=== PATIENT | male | born 1960 | race Caucasian/White ===

== ENCOUNTER 2019-11-22 11:29 | Inpatient (IN) | payer OTHER ==
[2019-11-22] VITALS (11 sets, daily range): BP systolic 121–142
[~2019-11-22] VITALS: Ht 185.4 cm; Wt 110.2 kg
--- NOTE | 2019-11-22 11:43 | NUR ---
PATIENT PRESENTS TO THE ER AFTER VISIT TO PMD AND WAS ADVISED TO GO TO ER FOR FIVE DAY HX OF MID CHEST PAIN WITH DYSPNEA AND FATIGUE; NO TRAUMA, NO OTHER REMARKABLE S/S; PATIENT TO ER #6 AT 1130 AND STAT EKG, INTERNAL SECURITY MANAGER AND SAO2
[2019-11-22] MEDS ORDERED: ASPIRIN 81 MG TAB.CHEW PO ONE (11:45)
--- NOTE | 2019-11-22 11:50 | NUR ---
ER at bedside examining patient.
--- NOTE | 2019-11-22 12:01 | NUR ---
patient went to the primary doctor for appointment cc of chest pain.sent to the ER for abnormal EKG. patient alert, awake, oriented. stated chest pain started since wednesday and refused to go the hospital. able to make appt with his PCP today. vital sign stable, afebrile. EKG done and gave Afshan Zuleta.
[2019-11-22 12:26] LABS: BASOPHILS # (AUTO) 0.1 K/uL (0.0-0.2); BASOPHILS % (AUTO) 0.8 % (0.0-2.0); EOSINOPHILS # (AUTO) 0.1 K/uL (0.0-0.4); EOSINOPHILS % (AUTO) 1.5 % (0.0-4.0); HEMATOCRIT 40.7 % (36-54); HEMOGLOBIN 13.8 g/dL (14.0-18.0); LYMPHOCYTES # (AUTO) 2.1 K/uL (1.0-5.5); LYMPHOCYTES % (AUTO) 26.3 % (20.5-51.5); MEAN CORPUSCULAR HEMOGLOBIN 30 pg (27-31); MEAN CORPUSCULAR HGB CONC 34 % (32-36); MEAN CORPUSCULAR VOLUME 88 fL (79.0-98.0); MONOCYTES # (AUTO) 0.6 K/uL (0.0-1.0); MONOCYTES % (AUTO) 7.8 % (1.7-9.3); NEUTROPHILS # (AUTO) 5.1 K/uL (1.8-7.7); NEUTROPHILS % (AUTO) 63.6 % (40.0-70.0); PLATELET COUNT (AUTO) 255 K/uL (130-430); RED BLOOD CELL COUNT(AUTO) 4.64 MIL/uL (4.2-6.2); WHITE BLOOD COUNT (AUTO) 8.1 K/uL (4.8-10.8)
--- NOTE | 2019-11-22 12:35 | NUR ---
IV SALINE LOCK PLACED #20 RIGHT HAND WITHOUT INCIDENT
[2019-11-22 12:46] LABS: CALCIUM 8.8 mg/dL (8.4-11.0); CREATININE 0.91 mg/dL (0.55-1.30)
[2019-11-22 12:54] LABS: ALBUMIN 3.6 g/dL (3.4-4.8); TOTAL BILIRUBIN 0.6 mg/dL (0.0-1.0)
[2019-11-22] MEDS ORDERED: ENOXAPARIN SODIUM 100 MG/ML SYRINGE SUBCUT ONE (13:30)
[2019-11-22] MEDS ORDERED: NITROGLYCERIN 0.4 MG TAB.SUBL SL PRN (13:30)
[2019-11-22] MEDS ORDERED: MORPHINE 4 MG/ML INJ. SYRINGE IVP PRN (13:30)
[2019-11-22] MEDS ORDERED: LORazepam 2 MG/ML VIAL IVP PRN (13:30)
[2019-11-22] MEDS ORDERED: LACT1CAP72 PO (13:53)
[2019-11-22] MEDS ORDERED: ROSU10TA2 PO (13:53)
--- NOTE | 2019-11-22 14:00 | NUR ---
Patient will be admitted to care of Dr. Vidal Dinero. Admitted to ICU department unit. Will go to room 2. Belongings list completed. Complete and up to date summary report printed. SBAR report to be given at bedside with opportunity for questions.
--- NOTE | 2019-11-22 14:25 | NUR ---
AT 1409 P.M, ADMITTED PATIENT FROM [facility], RECEIVED NURSING REPORT FROM [facility] STAFF, THIS IS A 59 YEARS OLD MALE, ALERT, ORIENTED X4, KOREAN VERBALIZED RESPONSE, ABLE TO MAKE NEEDS KNOWN, FULL CODE, NO KNOWN ALLERGY,DIAGNOSIS :AMI, CHIEF COMPLAIN: FEEL CHEST PAIN, , NAUSEA, GENERALIZED WEAKNESS, COLD SWEATING SINCE 6 DAYS AGO, PAST HISTORY : HIGH CHOLESTEROL, BORDERLINE HYPERTENSION, GIVE ENVIRONMENT ORIENTATION ,RAILS UP, CALL LIGHT IN REACH, KEEP CLEAN AND COMFORTABLE ALL TIMES
[2019-11-22] MEDS ORDERED: ATORVASTATIN 20 MG TABLET PO ONE (15:00)
[2019-11-22 15:17] LABS: BILIRUBIN,URINE NEGATIVE (NEGATIVE); BLOOD, URINE NEGATIVE (NEGATIVE); CLARITY/URINE CLEAR (CLEAR); COLOR,URINE YELLOW (YELLOW); GLUCOSE,URINE NEGATIVE (NEGATIVE); KETONES,URINE NEGATIVE (NEGATIVE); LEUKOCYTE ESTERASE ,URINE NEGATIVE (NEGATIVE); NITRITE, URINE NEGATIVE (NEGATIVE); PH,URINE 5.5 (5.0-8.0); PROTEIN URINE NEGATIVE (NEGATIVE); UROBILINOGEN,URINE 0.2 (0.2-1.0)
--- NOTE | 2019-11-22 16:03 | NUR ---
New consult paged to Dr. Priest. Dr. Priest returned call and states he will come see the patient.
--- NOTE | 2019-11-22 16:55 | NUR ---
SEE PATIENT FOR APPLICATIONS TRAINER CONSULT
[2019-11-22] MEDS ORDERED: HEPARIN SODIUM,PORCINE 5000 UNITS/ML VIAL SUBCUT ONE (17:15)
[2019-11-22] MEDS ORDERED: HEPARIN SODIUM,PORCINE 3000 UNITS/0.6 ML BOLUS IVP PRN (17:45)
[2019-11-22] MEDS ORDERED: ASPIRIN 81 MG TABLET(ECOTRIN) PO ONE (17:45)
[2019-11-22] MEDS ORDERED: METOPROLOL SUCCINATE 25 MG TAB.SR.24H (TOPROL XL) PO ONE (18:00)
[2019-11-22] MEDS ORDERED: LISINOPRIL 5 MG TABLET PO ONE (18:00)
--- NOTE | 2019-11-22 18:25 | NUR ---
ORDERED START HEPARIN DRIP AT 1000 UNITS/ HOUR AND FOLLOW UP PTT AT 11/23/19 0000 A.M, AND ON SCHEDULE FOR CARDIAC CATHETER 11/23/19 1500 P.M, IN [facility], PATIENT IS AWARE AND SIGN CONSENT IN THE CHART
[2019-11-22] MEDS: HEPARIN 25,000 UNITS/D5W 250ML 250 ML IV PRN (18:51)
--- NOTE | 2019-11-22 19:19 | NUR ---
GIVE COMPLETE NURSING REPORT TO OUTREACH COUNSELOR BOB Silver
[2019-11-22] MEDS ORDERED: TEMAZEPAM 15 MG CAPSULE PO PRN (21:30)
[2019-11-22] MEDS: ACETAMINOPHEN 500 MG TABLET PO PRN (22:29)
[2019-11-23] VITALS (24 sets, daily range): BP systolic 92–149
[2019-11-23] MEDS: HEPARIN SODIUM,PORCINE 2000 UNITS/0.4 ML BOLUS IVP PRN ×4 (01:44→23:28)
--- NOTE | 2019-11-23 01:49 | NUR ---
HEPARIN DRIP PTT 36.5, I witnessed Emile COON increase heparin drip from 1000 units to 1200 units per drip scale.
[2019-11-23 05:45] LABS: BASOPHILS # (AUTO) 0.1 K/uL (0.0-0.2); BASOPHILS % (AUTO) 1.1 % (0.0-2.0); EOSINOPHILS # (AUTO) 0.3 K/uL (0.0-0.4); EOSINOPHILS % (AUTO) 2.9 % (0.0-4.0); HEMOGLOBIN 13.2 g/dL (14.0-18.0); LYMPHOCYTES # (AUTO) 3.1 K/uL (1.0-5.5); LYMPHOCYTES % (AUTO) 32.8 % (20.5-51.5); MEAN CORPUSCULAR HEMOGLOBIN 30 pg (27-31); MEAN CORPUSCULAR HGB CONC 34 % (32-36); MEAN CORPUSCULAR VOLUME 88 fL (79.0-98.0); MONOCYTES # (AUTO) 0.9 K/uL (0.0-1.0); MONOCYTES % (AUTO) 9.3 % (1.7-9.3); NEUTROPHILS # (AUTO) 5.1 K/uL (1.8-7.7); NEUTROPHILS % (AUTO) 53.9 % (40.0-70.0); PLATELET COUNT (AUTO) 254 K/uL (130-430); RED BLOOD CELL COUNT(AUTO) 4.44 MIL/uL (4.2-6.2); WHITE BLOOD COUNT (AUTO) 9.4 K/uL (4.8-10.8)
--- NOTE | 2019-11-23 07:30 | NUR ---
AM ASSESSMENT Pt received from night RN using SBAR. Pt resting in bed with eyes open, bed in lowest position with call light within reach. Pt denies any chest pain now or during the night.
[2019-11-23 08:21] LABS: CALCIUM 8.8 mg/dL (8.4-11.0); CREATININE 1.03 mg/dL (0.55-1.30)
[2019-11-23] MEDS: ATORVASTATIN 20 MG TABLET PO SCH (08:40)
[2019-11-23] MEDS: LISINOPRIL 5 MG TABLET PO SCH (08:40)
[2019-11-23] MEDS: METOPROLOL SUCCINATE 25 MG TAB.SR.24H (TOPROL XL) PO SCH (08:41)
--- NOTE | 2019-11-23 08:44 | NUR ---
MD Dr. Priest at bedside with pt.
--- NOTE | 2019-11-23 08:48 | NUR ---
DC PLANNING Received call from ICU, pt higher LOC, scheduled to @ 3pm @ [facility] cardiac laborer wood preserving plant. I called & spoke w Amy @ [employer], ph [phone], states pt has not been entered in system yet no one assigned. Once receive fax w pt info can pt can be entered in system & CM assigned. I notified our admitting. I faxed pt info to Kelly, fax [phone], per Amy request. Addendum: 11/23/19 at 0959 by Cesia Lopez RN Per our insurance person, received pending auth for [facility], until pt is entered in system & CM assigned. Pending auth #[id number]. Called & informed Wanda, hospital insurance clerk @ [facility], ph [phone], states cannot take pending auth# pt needs to be in system before can accept pt. Addendum: 11/23/19 at 1127 by Cesia Lopez RN Called & left msg for Amy @ [facility], that pt should be in the system now, [facility]. Addendum: 11/23/19 at 1327 by Cesia Lopez RN Phillip LANG Wafer Substrate Tester, called [facility] to f/u if can get assigned CM if not then get auth. Do not have an assigned CM & it cannot get auth without being reviewed by assigned CM. Was escalated to urgent this am but no CM yet. Pending Auth for transfer is in the system already. I called & left msg again w Amy @ [facility], & left a msg for Inna @ [facility], ph [phone]. Received call back from Inna stating that she is not the right person for auth but she informed Dotty LANG nurse who would be able to assist. States Alayna is in rounds @ this time but will call me after rounds, has my direct #. I called & spoke w [facility]ia in [facility] & informed her that pending auth is in system now, states she cannot take a pending auth that she already looked @ [facility] system & found the pending auth but will only take pt when final auth given. Addendum: 11/23/19 at 1402 by Cesia Lopez RN Received call from Wanda, hospital insurance clerk @ [facility], stating same thing as Sintia that cannot take pending auth. I called & spoke w Dr Priest & updated, asked if can try to transfer to [facility], states no to cont to try [facility]. Received call from Mariela LANG nurse @ [facility], ph [phone], states that she will be the UR nurse following pt @ [facility]. States does not get Approved auth until pt is @ [facility], that pending auth is what is used for the transfer. Informed that [facility] not taking the pending auth, states she will discuss with her sterile supervisor & call me back. Updated Pt's nurse.
--- NOTE | 2019-11-23 09:20 | NUR ---
MD Dr. Tate at bedside with pt.
[2019-11-23] MEDS ORDERED: ROSUVASTATIN CALCIUM 5 MG/TAB (CRESTOR) PO SCH (09:45)
--- NOTE | 2019-11-23 09:45 | NUR ---
[place] [address] units/hr
--- NOTE | 2019-11-23 09:46 | NUR ---
Nutrition Update Adiel Scale 18 noted. Pt admitted for acute myocardial infarction Diet: clear liquid BMI: 32.1 kg/m2 RD to follow per nutrition care standards.
[2019-11-23] MEDS: HEPARIN 25,000 UNITS/D5W 250ML 250 ML IV PRN ×2 (09:48→15:04)
--- NOTE | 2019-11-23 14:33 | NUR ---
Received call from Kelly that Tika is CM assigned to pt here @ [place], ph [phone] fax [phone], to fax over pt review to her to review. Faxed pt info to Tika including transfer order, my direct # to call me CHRISTEL dutton. Received call back from Dotty that she discussed with her Front Office Administrator, states to fax pt info & will give to her Fisher [employer] Hooking to review. Informed me that Tika is the CM assigned to pt @ [place]. Informed received a call informing me that Tika is CM that faxed info to Tika, states they work in same dept that she will get pt info from her. Addendum: 11/23/19 at 1455 by Cesia Lopez RN Called & left msg w Tika assigned CM @ [facility], ph [phone], that need auth for transfer, to call me back w transfer auth & contracted ambulance. Informed that faxed pt info & has gone through, have fax receipt. Addendum: 11/23/19 at 1546 by Cesia Lopez RN Received call back from Tika Mendoza, states that does not have pt information yet, that the faxes go to centralized fax then they sort them & send them to correct CM. States after receives pt info will need to review with her [employer]. States do not get approved auth until pt is @ [facility]. Do not need auth for Ambulance, contracted ambulance: [facility] ph [phone], [facility] [phone], [facility] [phone], [facility] [phone], [facility] [phone]. Called & informed Wanda, insurance licensing supervisor again, states will call & speak floyd Storm. Received call back from Wanda states spoke floyd Storm & accepting pt. States need to speak w Cardiac incinerator plant laborer if pt able to come today or too late & need to be scheduled tomorrow. No answer in recyclable materials collector, called & spoke floyd Judge in admitting @ [employer], ph [phone], states spoke w Cardiac incinerator plant laborer will take pt today but needs to go to floor, cannot go straight to recyclable materials collector. Nu spoke w Gas Appliance Servicer & no beds, states will call me back Gas Appliance Servicer discussing w recyclable materials collector for plan. Addendum: 11/23/19 at 1554 by Cesia Lopez RN Re[facility] call from Dotty @ [facility] states spoke w Wanda @ [facility], states no ambulance auth required, can use any participating ambulance.
[2019-11-23] MEDS: ACETAMINOPHEN 500 MG TABLET PO PRN (14:59)
--- NOTE | 2019-11-23 15:45 | NUR ---
Discharge Planning: DCP arranged transportation with [facility] ([phone]) Will Call Trip #[id number] patient packet taken to nurse station. Patient to transfer ti [facility]
--- NOTE | 2019-11-23 15:55 | NUR ---
Process Stripper Spoke to Teresa COON [facility] Process Stripper, stated there is no bed available at this time. Instructed for [phone] [phone] [place] 4am to get a bed confirmed. Ambulance is on stand-by. Dr. Priest is made aware.
--- NOTE | 2019-11-23 16:00 | NUR ---
Informed Pt is informed of the current status regarding transfer to [facility]. All questions answered at this time. Pt understanding that we are waiting for a bed.
--- NOTE | 2019-11-23 16:07 | NUR ---
Received call from Nu in admitting, pt being rescheduled for tomorrow. Called & spoke w Chely @ [facility] lab, ph [phone], states pt scheduled for tomorrow @ 9am. Pt needs to be there 7 or 8am, need to call Benzene Washer for room assignment early tomorrow am. Called & spoke w Lacey Benzene Washer @ [facility], ph [phone], states to have nurse call around 5am tomorrow morning to get room assignment. Pt nurse Rivera is aware. Addendum: 11/23/19 at 1625 by Cesia Lopez RN Updated pt & family @ bedside, agreeable w transfer tomorrow.
--- NOTE | 2019-11-23 16:35 | NUR ---
Witnessed heparin drip titration to 1700 units/hr.
--- NOTE | 2019-11-23 17:29 | NUR ---
Family Pt resting in bed with family at bedside. No complaints of distress at this time.
--- NOTE | 2019-11-23 19:10 | NUR ---
PM ASSESSMENT Pt in bed with eyes open resting comfortably. No signs of acute distress or discomfort noted. Pt on 2L O2 via NC, tolerating well with O2 sats @ 98% and even and unlabored breathing. Pt has a LH 20g infusing Heparin drip @ 1700 u/hr. IV site c/d/i. Family at bedside. Bed is locked and in lowest position, call light within reach, will cont to monitor pt.
--- NOTE | 2019-11-23 19:21 | NUR ---
Closing Notes Pt resting in bed, no complaints of pain. Endorsed to night RN.
--- NOTE | 2019-11-23 23:30 | NUR ---
Tracy Ashley RN titrate Heparin Drip from 1700u/hr to 1900u/hr.
[2019-11-24] VITALS (16 sets, daily range): BP systolic 91–141
--- NOTE | 2019-11-24 00:53 | NUR ---
Pt in bed with eyes closed resting comfortably. No signs of acute distress or discomfort noted. Bed is locked and in lowest position, call light within reach, will cont to monitor pt.
--- NOTE | 2019-11-24 04:10 | NUR ---
Transfer Update Per manager of housekeeping, spoke to manager of housekeeping at [facility] at this time. Per [facility] manager of housekeeping, there is no bed availability at this time. Will followup in the morning. Will cont to monitor pt. Addendum: 11/24/19 at 0642 by Dion Godoy RN [facility] manager of housekeeping name, ToniaAfshan
[2019-11-24] MEDS: HEPARIN 25,000 UNITS/D5W 250ML 250 ML IV PRN (04:28)
--- NOTE | 2019-11-24 05:30 | NUR ---
Pt updated on POC at this time. All questions answered. Pt in bed with eyes open resting comfortably. No signs of acute distress or discomfort noted. Will cont to monitor pt.
--- NOTE | 2019-11-24 06:52 | NUR ---
WITNESS Witnessed SHAGGY Ashley titrate Heparin drip titration to 1900 units/hr to 2000 units/hr.
--- NOTE | 2019-11-24 07:25 | NUR ---
ENDORSEMENT Report given to dayshift RN using SBAR format and pt care was endorsed. No signs of acute distress or discomfort noted.
--- NOTE | 2019-11-24 07:30 | NUR ---
AM ASSESSMENT Pt received from night RN using SBAR.
--- NOTE | 2019-11-24 08:15 | NUR ---
DC Planning: per ,POLITICAL ANALYST, reported the patient has not been transfer to [facility] this due to no bed available for the pt. CM confirmed with Allison/[facility] admitting dept, said there are 12 pts holding in ED. And per Samia/sleep lab technician , said there are 4 pts on wait list for sleep lab technician as well. Samia is in contact with dr. Priest and aware that pt's troponin elevated x4. The case needs priority admission. Samia is hoping she can take the pt in today. I s/w to ask dr. Priest whether he wants to wait till [facility] has bed open or wants to send pt to another . -- CM to f/u.
--- NOTE | 2019-11-24 08:15 | NUR ---
Called [facility] and spoke with warehouse inventory clerk Alivia. She said their are no tele beds or ICU beds available and that there will not be any available for pt to transfer for a 9 am procedure this morning. It was discussed that we would call Dr. Priest and inform him that the patient will not be able to transfer this morning. Bedside RN aware and will place a call to Dr. Priest.
--- NOTE | 2019-11-24 08:40 | NUR ---
MD Dr. Priest at bedside with pt.
[2019-11-24] MEDS: LISINOPRIL 5 MG TABLET PO SCH (09:30)
[2019-11-24] MEDS: METOPROLOL SUCCINATE 25 MG TAB.SR.24H (TOPROL XL) PO SCH (09:30)
[2019-11-24] MEDS: ATORVASTATIN 20 MG TABLET PO SCH (09:44)
--- NOTE | 2019-11-24 12:16 | NUR ---
Manager Hydraulic: Met with pt. bedside ICU2 to conduct a DCPA. GAS WELDING MACHINE OPERATOR introduced self to to pt. who was resting. His mom, Adrienne Chery was present. Pt. stated he was fine having his mom present during this interview. Pt. was aware that he was awaiting a transfer to [facility]. for a procedure. He was agreeable to answering questions even though he was resting. Pt. was alert, awake and oriented. Pt. stated he lives at home with his finance and when he is discharged, he will return to his home. GAS WELDING MACHINE OPERATOR received phone call from Heleen in admitting at [facility], who stated they were ready and asked GAS WELDING MACHINE OPERATOR to have pt. sent over, but then she retracted and stated she is still waiting for insurance authorizations. GAS WELDING MACHINE OPERATOR thanked her for info.
--- NOTE | 2019-11-24 13:35 | NUR ---
Heparin I witnessed Maco COON titrate Heparin to 2100 units/hr from 2000 units/hr.
--- NOTE | 2019-11-24 14:50 | NUR ---
Resting Pt resting in bed. No signs of acute distress. Pt's family is at bedside.
--- NOTE | 2019-11-24 15:30 | NUR ---
Transfer Gown Pt dressed into orange transfer gown.
--- NOTE | 2019-11-24 15:39 | NUR ---
Report Report given to Lilly COON at [facility] Advertising Assistant.
--- NOTE | 2019-11-24 15:40 | NUR ---
Off Unit Pt off unit heading to [facility] via ambulance transport.
== END 2019-11-24 15:35 | disposition short-term general hospital (02) | DRG 282 ==
LOC: SED 11:29 → SIC 13:18
PROVIDERS: ADMIT Family Medicine; ATTEND Family Medicine
DX: I21.9 Acute myocardial infarction, unspecified (principal); E78.5 Hyperlipidemia, unspecified; E78.00 Pure hypercholesterolemia, unspecified; I10 Essential (primary) hypertension; Z79.899 Other long term (current) drug therapy
CPT/HCPCS: 36415; 71045; 80048; 80053; 80061; 81003; 82550-TC; 83880; 84484; 85025; 85730-TC; 87081; 93005; 96372; 99291; J1644; J1650

== ENCOUNTER 2020-04-09 11:05 | Inpatient (IN) | payer OTHER, SELFPAY ==
[~2020-04-09] VITALS: Ht 185.4 cm; Wt 107.5 kg
[~2020-04-09 11:05] MED LIST: LACT1CAP72 PO; ROSU10TA2 PO
[2020-04-09 11:10] VITALS: BP_SYST 141
--- NOTE | 2020-04-09 11:10 | NUR ---
Placed in room 3. Placed on cardiac technologist, blood pressure machine and pulse oximeter. To gown for exam. Side rails up. Report given to SHAGGY Hurtado.
[2020-04-09] MEDS ORDERED: FAMOTIDINE PF 20 MG/2 ML VIAL IVP ONE (11:30)
[2020-04-09] MEDS ORDERED: MAG-AL HYDROX/SIMETH 30 ML UDC PO ONE (11:30)
[2020-04-09] MEDS ORDERED: LIDOCAINE VISCOUS 2%, 15 ML UDC MM ONE (11:30)
[2020-04-09 11:57] LABS: BASOPHILS % (AUTO) 0.4 % (0.0-2.0); EOSINOPHILS # (AUTO) 0.1 K/uL (0.0-0.4); EOSINOPHILS % (AUTO) 1.7 % (0.0-4.0); HEMATOCRIT 46.5 % (36-54); HEMOGLOBIN 15.6 g/dL (14.0-18.0); LYMPHOCYTES # (AUTO) 1.6 K/uL (1.0-5.5); LYMPHOCYTES % (AUTO) 20.9 % (20.5-51.5); MEAN CORPUSCULAR HEMOGLOBIN 27 pg (27-31); MEAN CORPUSCULAR HGB CONC 34 % (32-36); MEAN CORPUSCULAR VOLUME 82 fL (79.0-98.0); MONOCYTES # (AUTO) 0.5 K/uL (0.0-1.0); MONOCYTES % (AUTO) 6.2 % (1.7-9.3); NEUTROPHILS # (AUTO) 5.4 K/uL (1.8-7.7); NEUTROPHILS % (AUTO) 70.8 % (40.0-70.0); PLATELET COUNT (AUTO) 198 K/uL (130-430); RED CELL DISTRIBUTION WIDTH 15.7 % (9.0-15.0); WHITE BLOOD COUNT (AUTO) 7.7 K/uL (4.8-10.8)
[2020-04-09 12:09] LABS: CALCIUM 8.9 mg/dL (8.4-11.0); CREATININE 1.03 mg/dL (0.55-1.30); POTASSIUM 4.1 mmol/L (3.5-5.1)
[2020-04-09 12:13] LABS: PROTHROMBIN TIME 9.9 SECS (9.5-12.5)
[2020-04-09 12:14] LABS: TOTAL BILIRUBIN 1.4 mg/dL (0.0-1.0)
[2020-04-09] MEDS ORDERED: METO50CA PO (14:04)
[2020-04-09] MEDS ORDERED: LIP80 PO (14:04)
[2020-04-09] MEDS ORDERED: ASPI-524 PO (14:05)
--- NOTE | 2020-04-09 14:07 | NUR ---
REASSESSMENT; PATIENT STATES MARGINAL IMPROVEMENT IN SYMPTOMS; DISPOSITION PENDING
[2020-04-09] MEDS ORDERED: CIPROFLOXACIN LACT 400 MG/D5W 200 ML IV ONE (14:30)
--- NOTE | 2020-04-09 15:25 | NUR ---
REASSESSMENT; PATIENT REMAINS SEDATE AND UNCHANGED; DISPOSITION PENDING
[2020-04-09] MEDS ORDERED: NACL 0.9% 1,000 ML IV ONE (16:45)
--- NOTE | 2020-04-09 16:57 | NUR ---
PATIENT STATES MARKED IMPROVEMENT IN SYMPTOMS; ADMISSION TO [facility] PENDING
--- NOTE | 2020-04-09 17:30 | NUR ---
Dr Afshan Duffy called back and notified of consult
--- NOTE | 2020-04-09 17:36 | NUR ---
Dr. Daley called back for cardiology consult.
--- NOTE | 2020-04-09 18:04 | NUR ---
Dr. Tate in to see patient.
--- NOTE | 2020-04-09 19:00 | NUR ---
PATIENT TRANSFERED TO [facility], PATENT IV, BCLS, IMPROVED; REPORT TO NURSE ATTENDING
[2020-04-09 19:50] VITALS: BP_SYST 156
--- NOTE | 2020-04-09 20:00 | NUR ---
ADMISSION NOTE Received patient from ER via nadege, received report from SHAGGY Munoz. Patient admitted with diagnosis of choleysistitis, cholelithiasis. Patient oriented to hospital routine, call light, toileting and safety-patient verbalized understanding.
--- NOTE | 2020-04-09 20:10 | NUR ---
04/09/202009 Received pt as an admit from home, by the charge nurse. Pt is awoke alert OX4, lungs clear, abdomen soft non distended, skin intact. Pt's PCP saw the pt in E.R, before coming to the unit, and the surgeon DR Duffy was on the unit and saw the pt, also the Mold Yard Crane Operator DR Priest was called to inform his the pt is here. Dr Priest said he would see the pt in the morning. The pt is scheduled for a Hida scan and will be NPO after midnight and the pt is aware. Pt c/o of having mid abdomen pain and Dr. Duffy ordered Ultram for pain. Pt received Ultram 100mg PO for pain. No other needs at this time. Will continue to monitor the pt. 04/10/20 0001 Pt is resting in bed with eyes closed respirations even and non labored, pt's water was empted and the pt is now NPO. Pt's bed is in low position with wheels locked call light in reach. No sign or symptom of and discomfort. Will continue to monitor the pt for any discomfort. 0630 Pt is continuously resting comfortably in bed with eyes closed, respirations even and non-labored. No discomfort noted by the nurse thru-out her shift will endorse to on going day shift staff nurse.
[2020-04-09] MEDS ORDERED: MORPHINE 2 MG/ML INJ. SYRINGE IVP PRN (20:30)
--- NOTE | 2020-04-09 21:30 | NUR ---
DR. JOAQUIN NUÑEZ IS AWARE OF THE CONSULT HE GAVE ORDERS ALREADY
--- NOTE | 2020-04-09 21:38 | NUR ---
CONSULT: CONSULT CALLED FOR DR. NUÑEZ I SPOKE WITH Provade REASON FOR CONSULT: HYPERTENSION REQUESTING CONSULT: DR. THURMAN [employer] PRINCIPAL PHONE NUMBER: [phone] Addendum: 04/10/20 at 0159 by Oumou Arora CA/ CONSULT WAS CALLED FOR DR. ARGUETA I DID CALLED DR. ARGUETA BUT I WROTE DR. LEON
[2020-04-09] MEDS: NACL 0.9% 1,000 ML IV SCH (21:50)
[2020-04-09] MEDS: traMADol HCL HCL 50 MG TABLET (ULTRAM) PO PRN (21:52)
[2020-04-10 06:54] VITALS: BP_SYST 137
--- NOTE | 2020-04-10 07:35 | NUR ---
INITIAL NOTE PT RESTING IN BED, NO ACUTE DISTRESS NOTED, BREATHING EVEN AND UNLABORED. IVF INFUSING WELL. CALL LIGHT WITHIN REACH, BED IN LOW AND LOCKED POSITION WITH BED ALARM ON.
[2020-04-10 08:00] VITALS: BP_SYST 130
--- NOTE | 2020-04-10 08:00 | NUR ---
LEFT FOR HIDA SCAN PT DISCONNECTED FROM IVF. PT TAKEN VIA WHEELCHAIR. PT STABLE.
--- NOTE | 2020-04-10 10:30 | NUR ---
RN ROUNDS PT DENIES ANY PAIN OR DISCOMFORT, NO CHANGE IN ASSESSMENT. WILL CONTINUE TO MONITOR.
[2020-04-10 11:34] VITALS: BP_SYST 141
[2020-04-10] MEDS ORDERED: METOPROLOL SUCCINATE 50 MG TAB.SR.24H (TOPROL XL) PO ONE (12:00)
--- NOTE | 2020-04-10 13:00 | NUR ---
DR. NUÑEZ SPOKE WITH MD VIA PHONE, PER MD SURGERY WILL BE SCHEDULED TENTATIVELY TODAY AT 5:30PM. KEEP PT NPO, AND TAKE COVID TEST. VERIFIED WITH READ BACK.
[2020-04-10 13:29] LABS: ALBUMIN 3.7 g/dL (3.4-4.8); CALCIUM 8.1 mg/dL (8.4-11.0); CREATININE 0.9 mg/dL (0.55-1.30); POTASSIUM 3.8 mmol/L (3.5-5.1); TOTAL BILIRUBIN 1.3 mg/dL (0.0-1.0)
[2020-04-10 16:01] VITALS: BP_SYST 122
[2020-04-10] MEDS: NACL 0.9% 1,000 ML IV SCH ×2 (16:23→22:49)
--- NOTE | 2020-04-10 17:24 | NUR ---
LEFT TO SURGERY PT TAKEN TO SURGERY, ACCOMPANIED BY OR NURSES. PT CHART WITH OR NURSES. PT STABLE AND DENIES ANY PAIN OR DISCOMFORT.
--- NOTE | 2020-04-10 18:02 | NUR ---
CLOSING NOTE PT REMAINS IN SURGERY AT THIS TIME. WILL CONTINUE TO MONITOR UNTIL PT CARE IS ENDORSED TO SCOURING PADS SUPERVISOR RN.
[2020-04-10] MEDS ORDERED: IOHEXOL 50 ML IV ONE (18:13)
[2020-04-10] MEDS ORDERED: KETOROLAC TROMETHAMINE 30 MG VIAL IM PRN (18:45)
[2020-04-10] MEDS ORDERED: METOCLOPRAMIDE HCL 10 MG/2 ML VIAL IVP PRN (18:45)
[2020-04-10] MEDS ORDERED: HYDROmorphone 1 MG INJ. 1 MG/ML AMPUL IVP PRN (18:45)
[2020-04-10] MEDS ORDERED: HYDROmorphone 1 MG INJ. 1 MG/ML AMPUL ONE (20:01)
--- NOTE | 2020-04-10 20:25 | NUR ---
NOTES PATIENT BACK FROM SURGERY AWAKE, ALERT, ORIENTED, VITALS STABLE. DENIES ANY PAIN AT THIS TIME. ASSESSMENT DONE AND DOCUMENTED. SEE FLOWSHEET. NEEDS ATTENDED TO. SAFETY AND FALL MEASURES IN PLACED. BED IN LOW AND LOCKED POSITION. CALL LIGHT PLACED WITHIN REACH.
[2020-04-10 21:08] VITALS: BP_SYST 136
[2020-04-10 23:35] VITALS: BP_SYST 132
--- NOTE | 2020-04-11 00:16 | NUR ---
PATIENT RESTING: Patient resting quietly. No acute distress noted. Vital signs within normal range.
--- NOTE | 2020-04-11 02:13 | NUR ---
ROUNDS PATIENT ASLEEP, RESPIRATIONS EVEN AND UNLABORED, NO SOB NOR PAIN AND DISCOMFORT NOTED. WILL CONTINUE TO MONITOR.
--- NOTE | 2020-04-11 04:16 | NUR ---
PATIENT RESTING: Patient resting quietly. No acute distress noted. Vital signs within normal range.
[2020-04-11] MEDS: traMADol HCL HCL 50 MG TABLET (ULTRAM) PO PRN ×2 (05:49→12:49)
--- NOTE | 2020-04-11 06:34 | NUR ---
CLOSING NOTES PATIENT RESTING COMFORTABLY IN BED, NO PAIN AND DISCOMFORT, VITALS STABLE. ALL NEEDS ATTENDED TO. SAFETY MEASURES MAINTAINED. CALL LIGHT PLACED WITHIN REACH.
--- NOTE | 2020-04-11 07:15 | NUR ---
OPENING NOTES PT AWAKE, ALERT, AND ORIENTED. NONLABORED BREATHING NOTED ON ROOM AIR, O2 AT 93%. PT DENIES PAIN AND SOB AT THIS TIME. IV LINE INTACT AND PATENT, NO SIGNS OF INFILTRATION NOTED, FLUIDS RUNNING ORDERED PER MD. SURGICAL DRESSINGS CLEAN, DRY AND INTACT, NO ACTIVE BLEEDING NOTED. NO ACUTE DISTRESS NOTED. ALL NEEDS MET. CALL LIGHT IN REACH. FALL AND ASPIRATION PRECAUTIONS IN PLACE. CONTINUE TO MONITOR.
[2020-04-11 07:59] LABS: ALBUMIN 3.7 g/dL (3.4-4.8); CALCIUM 8.3 mg/dL (8.4-11.0); CREATININE 1.03 mg/dL (0.55-1.30); POTASSIUM 4.1 mmol/L (3.5-5.1); TOTAL BILIRUBIN 1.3 mg/dL (0.0-1.0)
[2020-04-11 08:00] VITALS: BP_SYST 132
[2020-04-11] MEDS ORDERED: METOPROLOL SUCCINATE 50 MG TAB.SR.24H (TOPROL XL) PO SCH (09:00)
[2020-04-11] MEDS ORDERED: ASPIRIN 81 MG TAB.CHEW PO SCH (09:00)
[2020-04-11] MEDS ORDERED: ATORVASTATIN 20 MG TABLET PO SCH (09:00)
--- NOTE | 2020-04-11 09:50 | NUR ---
ROUTINE MEDS ROUTINE MEDS ADMINISTERED ORDERED PER MD, EDUCATION GIVEN, TOLERATED WELL. PT VERBALIZED UNDERSTANDING. CONTINUE TO MONITOR.
[2020-04-11 12:00] VITALS: BP_SYST 126
--- NOTE | 2020-04-11 12:00 | NUR ---
GAVE PT LUNCH AND VITAL SIGNS STABLE. CONTINUE TO MONITOR.
--- NOTE | 2020-04-11 12:40 | NUR ---
SEEN BY DR. NUÑEZ AT BEDSIDE. CONTINUE TO MONITOR.
--- NOTE | 2020-04-11 12:50 | NUR ---
PT C/O PAIN WHEN SITTING UP AND EATING IN THE LOWER ABD AREA. ADMINISTERED PAIN MEDS ORDERED PER MD, EDUCATION GIVEN, TOLERATED WELL, PT VERBALIZED UNDERSTANDING. NO ACUTE DISTRESS NOTED. ALL NEEDS MET. CALL LIGHT IN REACH. CONTINUE TO MONITOR.
--- NOTE | 2020-04-11 13:35 | NUR ---
SEEN BY DR. THURMAN AT BEDSIDE.
[2020-04-11 13:51] VITALS: BP_SYST 117
== END 2020-04-11 14:50 | disposition home or self-care (01) | DRG 419 ==
LOC: SED 11:05 → SMU 16:34 → EEVIPCON 16:34 → SMU 19:00
PROVIDERS: ADMIT Family Medicine; ATTEND Family Medicine
PROC: 0FT44ZZ Resection of Gallbladder, Percutaneous Endoscopic Approach (ICD-10-PCS; principal; 2020-04-11)
PROC: BF121ZZ Fluoroscopy of Gallbladder using Low Osmolar Contrast (ICD-10-PCS; 2020-04-11)
DX: K80.00 Calculus of gallbladder with acute cholecystitis without obstruction (principal); E78.5 Hyperlipidemia, unspecified; K66.0 Peritoneal adhesions (postprocedural) (postinfection); E78.00 Pure hypercholesterolemia, unspecified; I10 Essential (primary) hypertension; Z20.828 Contact with and (suspected) exposure to other viral communicable diseases; I25.10 Atherosclerotic heart disease of native coronary artery without angina pectoris; I25.2 Old myocardial infarction; Z95.1 Presence of aortocoronary bypass graft; Z79.899 Other long term (current) drug therapy; Z79.82 Long term (current) use of aspirin
CPT/HCPCS: 36415; 71045; 76000; 76700-TC; 78226; 80053; 83880; 84484; 85025; 85379; 85610-TC; 85730-TC; 86886; 86900; 86901; 87081; 88304; 93005; 96361; 96365; 99285; A9537; J0744; J1170; J2001; J3490; J7030; Q9967; U0003-CS